=== PATIENT | female | born 1995 | race Caucasian/White ===

== ENCOUNTER 2020-01-08 16:07 | Emergency (ER) | payer OTHER ==
[~2020-01-08] VITALS: Ht 162.6 cm; Wt 98.0 kg
== END 2020-01-09 12:05 | disposition home or self-care (01) ==
LOC: ER 16:07
DX: O46.8X1 Other antepartum hemorrhage, first trimester (principal); O98.511 Other viral diseases complicating pregnancy, first trimester; U07.1 COVID-19; Z3A.01 Less than 8 weeks gestation of pregnancy

== ENCOUNTER → 2020-04-25 | Outpatient (CLI) | payer OTHER | END | disposition home or self-care (01) | LOC: PRENATAL 08:00 | PROVIDERS: ATTEND Obstetrics & Gynecology Maternal & Fetal Medicine | DX: O35.0XX1 Maternal care for (suspected) central nervous system malformation in fetus, fetus 1 (principal); O35.3XX1 Maternal care for (suspected) damage to fetus from viral disease in mother, fetus 1; O98.512 Other viral diseases complicating pregnancy, second trimester; O99.212 Obesity complicating pregnancy, second trimester; Z36.89 Encounter for other specified antenatal screening; Z3A.21 21 weeks gestation of pregnancy ==

== ENCOUNTER 2020-06-13 12:17 | Inpatient (IN) | payer OTHER ==
[~2020-06-13] VITALS: Ht 160 cm; Wt 104.3 kg
[2020-06-13] MEDS ORDERED: PRENATAL TABLE1 EAC3 PO (13:56)
[2020-06-13] MEDS ORDERED: ADULT ASPIRIN81 MG PO (13:56)
== END 2020-06-15 18:51 | disposition home or self-care (01) | DRG 832 ==
LOC: LDR 12:17
PROVIDERS: ADMIT Obstetrics & Gynecology; ATTEND Obstetrics & Gynecology
PROC: 4A1HXFZ Monitoring of Products of Conception, Cardiac Rhythm, External Approach (ICD-10-PCS; principal; 2020-06-13)
DX: O47.03 False labor before 37 completed weeks of gestation, third trimester (principal); O26.873 Cervical shortening, third trimester; Z3A.28 28 weeks gestation of pregnancy; Z20.822 Contact with and (suspected) exposure to COVID-19

== ENCOUNTER → 2020-06-13 | Outpatient (CLI) | payer OTHER ==
[~2020-06-13] MED LIST: ADULT ASPIRIN81 MG PO; PRENATAL TABLE1 EAC3 PO
== END | disposition home or self-care (01) ==
LOC: PRENATAL 08:00
PROVIDERS: ATTEND Obstetrics & Gynecology Maternal & Fetal Medicine
DX: O34.33 Maternal care for cervical incompetence, third trimester (principal); O26.843 Uterine size-date discrepancy, third trimester; O60.03 Preterm labor without delivery, third trimester; O99.213 Obesity complicating pregnancy, third trimester; Z36.89 Encounter for other specified antenatal screening; Z3A.28 28 weeks gestation of pregnancy

== ENCOUNTER 2020-08-14 13:31 | Outpatient (CLI) | payer OTHER | END 2020-08-14 19:39 | disposition home or self-care (01) | LOC: OBS/DEL 13:31 | PROVIDERS: ATTEND Obstetrics & Gynecology | DX: O26.843 Uterine size-date discrepancy, third trimester (principal); O36.8130 Decreased fetal movements, third trimester, not applicable or unspecified; O35.0XX0 Maternal care for (suspected) central nervous system malformation in fetus, not applicable or unspecified; Z3A.37 37 weeks gestation of pregnancy ==

== ENCOUNTER 2020-08-23 12:45 | Inpatient (IN) | payer OTHER ==
[~2020-08-23] VITALS: Ht 160 cm; Wt 108.9 kg
[2020-08-27] MEDS ORDERED: FORTAMET500 MG PO (14:02)
== END 2020-08-29 14:23 | disposition home or self-care (01) | DRG 807 ==
LOC: LDR 08-27 13:03 → OB/GYN 08-27 13:03
PROVIDERS: ADMIT Obstetrics & Gynecology; ATTEND Obstetrics & Gynecology
PROC: 10E0XZZ Delivery of Products of Conception, External Approach (ICD-10-PCS; principal; 2020-08-27)
PROC: 0W8NXZZ Division of Female Perineum, External Approach (ICD-10-PCS; 2020-08-27)
PROC: 0HQ9XZZ Repair Perineum Skin, External Approach (ICD-10-PCS; 2020-08-27)
PROC: 4A1HXFZ Monitoring of Products of Conception, Cardiac Rhythm, External Approach (ICD-10-PCS; 2020-08-27)
DX: O24.429 Gestational diabetes mellitus in childbirth, unspecified control (principal); Z37.0 Single live birth; Z3A.38 38 weeks gestation of pregnancy; O70.0 First degree perineal laceration during delivery

== ENCOUNTER 2020-08-27 08:17 | Outpatient (CLI) | payer OTHER ==
[2020-08-27] MEDS ORDERED: FORTAMET500 MG PO (14:02)
== END 2020-08-27 13:02 | disposition still patient (30) ==
LOC: OBS/DEL 08:17
PROVIDERS: ATTEND Obstetrics & Gynecology
DX: O60.03 Preterm labor without delivery, third trimester (principal); O43.893 Other placental disorders, third trimester; O26.853 Spotting complicating pregnancy, third trimester; Z3A.28 28 weeks gestation of pregnancy; O26.873 Cervical shortening, third trimester

== ENCOUNTER 2021-04-10 08:23 | Outpatient (CLI) | payer OTHER ==
[~2021-04-10 08:23] MED LIST changes: +FORTAMET500 MG PO
== END 2021-04-10 09:20 | disposition home or self-care (01) ==
LOC: PRENATAL 08:23
PROVIDERS: ATTEND Obstetrics & Gynecology Maternal & Fetal Medicine
DX: O35.0XX1 Maternal care for (suspected) central nervous system malformation in fetus, fetus 1 (principal); O35.3XX1 Maternal care for (suspected) damage to fetus from viral disease in mother, fetus 1; O98.512 Other viral diseases complicating pregnancy, second trimester; O26.842 Uterine size-date discrepancy, second trimester; O99.212 Obesity complicating pregnancy, second trimester; Z36.89 Encounter for other specified antenatal screening; Z3A.22 22 weeks gestation of pregnancy

== ENCOUNTER 2021-06-25 09:03 | Outpatient (CLI) | payer OTHER | END 2021-06-25 10:00 | disposition home or self-care (01) | LOC: PRENATAL 09:03 | PROVIDERS: ATTEND Obstetrics & Gynecology Maternal & Fetal Medicine | DX: O26.849 Uterine size-date discrepancy, unspecified trimester (principal); O35.0XX0 Maternal care for (suspected) central nervous system malformation in fetus, not applicable or unspecified; O99.210 Obesity complicating pregnancy, unspecified trimester ==

== ENCOUNTER 2021-07-23 16:20 | Outpatient (CLI) | payer OTHER ==
[2021-07-24] MEDS ORDERED: METFORMIN HCL500 M3 PO (02:47)
== END 2021-07-24 13:13 | disposition home or self-care (01) ==
LOC: OBS/DEL 16:20 → PRENATAL 07-27 10:30
PROVIDERS: ATTEND Obstetrics & Gynecology
DX: O26.893 Other specified pregnancy related conditions, third trimester (principal); R10.84 Generalized abdominal pain; R16.0 Hepatomegaly, not elsewhere classified; Z3A.37 37 weeks gestation of pregnancy

== ENCOUNTER 2021-07-25 18:39 | Inpatient (IN) | payer OTHER ==
[~2021-07-25] VITALS: Ht 160 cm; Wt 3.6 kg
[~2021-07-25 18:39] MED LIST changes: +METFORMIN HCL500 M3 PO
== END 2021-07-30 18:07 | disposition home or self-care (01) | DRG 784 ==
LOC: ER 18:39 → OB/GYN 07-26 10:36
PROVIDERS: ADMIT Obstetrics & Gynecology; ATTEND Obstetrics & Gynecology
PROC: 10D00Z1 Extraction of Products of Conception, Low, Open Approach (ICD-10-PCS; principal; 2021-07-26)
PROC: 0UB50ZZ Excision of Right Fallopian Tube, Open Approach (ICD-10-PCS; 2021-07-26)
PROC: 4A1HXCZ Monitoring of Products of Conception, Cardiac Rate, External Approach (ICD-10-PCS; 2021-07-26)
DX: O24.415 Gestational diabetes mellitus in pregnancy, controlled by oral hypoglycemic drugs (principal); K80.00 Calculus of gallbladder with acute cholecystitis without obstruction; O99.613 Diseases of the digestive system complicating pregnancy, third trimester; O34.211 Maternal care for low transverse scar from previous cesarean delivery; O99.213 Obesity complicating pregnancy, third trimester; E66.8 Other obesity; Z3A.38 38 weeks gestation of pregnancy; Z37.0 Single live birth; Z30.2 Encounter for sterilization; Z20.822 Contact with and (suspected) exposure to COVID-19